=== PATIENT | male | born 1990 | race Caucasian/White ===

== ENCOUNTER 2016-10-10 04:13 | Emergency (ER) | payer OTHER ==
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
[~2016-10-10 04:13] MED LIST: PATANOL5 ML OU; PHENERGAN PO; POLYTRIM EYE DR10 ML OU
== END 2016-10-10 05:10 | disposition home or self-care (01) ==
LOC: CED 04:13
DX: S01.81XA Laceration without foreign body of other part of head, initial encounter (principal); F41.9 Anxiety disorder, unspecified; F32.9 Major depressive disorder, single episode, unspecified; F17.210 Nicotine dependence, cigarettes, uncomplicated; W22.8XXA Striking against or struck by other objects, initial encounter; Y92.410 Unspecified street and highway as the place of occurrence of the external cause
CPT/HCPCS: 12011; 70450; 99284

== ENCOUNTER → 2016-10-27 16:15 | Emergency (ER) | payer OTHER | END | disposition left against medical advice (07) | LOC: CED 16:15 | DX: Z53.21 Procedure and treatment not carried out due to patient leaving prior to being seen by health care provider (principal) ==

== ENCOUNTER → 2016-12-13 | Outpatient (CLI) | payer OTHER ==
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
== END | disposition home or self-care (01) ==
LOC: CRAD 03:39
DX: M54.5 Low back pain (principal); R51 Headache
CPT/HCPCS: 72050; 72110

== ENCOUNTER 2017-01-06 12:19 | Emergency (ER) | payer OTHER ==
--- NOTE | ~2017-01-06 | CR63 ---
[facility] A Service of [facility] RADIOLOGY TEXT RESULTS PATIENT: STEVIE ALMANZA LOCATION: [facility] : 86 UNIT #: [id number] AGE: [address]: Jesus Alberto Smith SEX: M ORDER DR: [id number] [facility] [address] [place], [place] [address] [id number] E MR#: [id number] Acc #: [id number] NAME: STEVIE ALMANZA : 1990 SEX: M STUDY DATE/TIME: 01/06/2017 UNIT: [facility] ROOM: STUDY DESCRIPTION: CR Chest 2 View Ordering Physician: Er Physicians Primary Care Physician: Racquel Pyle M.D. MEDICAL IMAGING REPORT This report is preliminary unless electronic signature is present EXAM Chest 2 views 01/06/2017 1419 hours HISTORY 26-year-old man with cough, shortness of air and mid-anterior chest pain for 2 days. COMPARISON 06/20/2015. FINDINGS Upright PA and lateral views of the chest demonstrate normal cardiac, mediastinal and hilar contours. Lungs are hyperinflated but clear. There is no effusion or pneumothorax. IMPRESSION Pulmonary hyperinflation, otherwise normal chest. Dictated by... Chyna Pitt M.D. THIS IS AN ELECTRONICALLY VERIFIED REPORT Chyna Pitt M.D. at 01/09/2017 10:35 AM Isaac TD: 01/06/2017 17:11 JOB #: [id number] MEDICAL IMAGING REPORT Page 1 of 1 COPY
== END 2017-01-06 15:29 | disposition home or self-care (01) ==
LOC: CED 12:19 → CFTX 12:19 → CED 13:35 → CFTX 13:35
DX: J02.9 Acute pharyngitis, unspecified (principal); F31.9 Bipolar disorder, unspecified; F17.210 Nicotine dependence, cigarettes, uncomplicated
CPT/HCPCS: 71020; 87651; 99285

== ENCOUNTER 2017-01-18 21:20 | Emergency (ER) | payer OTHER ==
[2017-01-18 23:40] LABS: BASOPHIL# 0.1 X10e3 (0-0.3); BASOPHIL% 0.5 % (0-2.5); DIFF IND NO; EOSINOPHIL# 0.2 X10e3 (0-0.7); EOSINOPHIL% 1.7 % (0.0-7.0); HEMATOCRIT 38.3 % (38.0-50.0); HEMOGLOBIN 12.6 gm/dL (13.0-16.0); LYMPHOCYTE# 1.9 X10e3 (1.0-3.5); LYMPHOCYTE% 13.9 % (17.0-45.0); MEAN CELL VOLUME 87.8 FL (83-96); MEAN CORPUSCULAR HEMOGLOBIN 28.9 PG (28-34); MEAN CORPUSCULAR HGB CONC 32.9 g/dL (30-36); MEAN PLATELET VOLUME 7.9 FL (6.5-11.5); MONOCYTE# 1.2 X10e3 (0-1.0); MONOCYTE% 8.8 % (3.0-12.0); NEUTROPHIL# 10.2 X10e3 (1.5-7.1); NEUTROPHIL% 75.1 % (40-75); PLATELET COUNT 239 X10e3 (140-420); RED BLOOD COUNT 4.36 X10e (3.90-5.60); RED CELL DISTRIBUTION WIDTH 12.9 % (11.0-15.5); WHITE BLOOD COUNT 13.6 X10e3 (4.0-10.5)
[2017-01-19 00:06] LABS: CALCIUM SERUM 9.1 mg/dL (8.4-10.2); POTASSIUM 3.6 mmol/L (3.5-5.1)
== END 2017-01-19 01:20 | disposition home or self-care (01) ==
LOC: CED 21:20
PROVIDERS: Emergency Medicine
DX: L03.114 Cellulitis of left upper limb (principal); F32.9 Major depressive disorder, single episode, unspecified; F41.9 Anxiety disorder, unspecified; F17.210 Nicotine dependence, cigarettes, uncomplicated
CPT/HCPCS: 36415; 80048; 85025; 87040; 96365; 99283; J0295

== ENCOUNTER 2017-03-28 17:14 | Emergency (ER) | payer OTHER ==
[~2017-03-28] VITALS: Ht 175.3 cm; Wt 68.0 kg
== END 2017-03-28 18:40 | disposition home or self-care (01) ==
LOC: CFTX 17:14 → CED 17:14 → CFTX 17:39
DX: S61.012A Laceration without foreign body of left thumb without damage to nail, initial encounter (principal); F17.210 Nicotine dependence, cigarettes, uncomplicated; W26.0XXA Contact with knife, initial encounter; Y92.69 Other specified industrial and construction area as the place of occurrence of the external cause; Y99.0 Civilian activity done for income or pay; D64.9 Anemia, unspecified; F31.9 Bipolar disorder, unspecified
CPT/HCPCS: 12001; 99283